=== PATIENT | male | born 1980 | race Caucasian/White ===

== ENCOUNTER → 2017-11-22 | Outpatient (CLI) | payer BC ==
--- NOTE | 2017-11-22 17:30 | US ---
EXAMINATION TYPE: US scrotum with doppler. Grayscale and color Doppler Duplex imaging performed of rolo ochoa scrotum. 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 Pt states left testicle pain EXAM MEASUREMENTS: TESTICLES: Right Testicle: 4.7 x 2.2 x 3.2 cm Left Testicle: 4.5 x 2.1 x 3.2 cm EPIDIDYMIS HEAD: Right Epididymis: 1.8 cm Left Epididymis: 1.4 cm Doppler performed to assess for testicular vascularity; good bilateral color flow and waveforms are s een. There is no evidence of testicular torsion. Presence of hydroceles: No Presence of varicoceles: Yes, lateral to left testicle Right epididymal head cyst= 1.0 x 0.7 x 1.1 cm IMPRESSION: No testicular torsion or mass. Small left-sided hydrocele. Simple right epididymal cyst.
== END ==
LOC: RADUSWWP 16:54
PROVIDERS: ATTEND Family Medicine
DX: N43.3 Hydrocele, unspecified (principal); N50.3 Cyst of epididymis
CPT/HCPCS: 76870; 93975

== ENCOUNTER → 2023-04-25 | Outpatient (CLI) | payer BC | END | disposition home or self-care (01) | LOC: LABWHC1 11:31 | PROVIDERS: ATTEND Surgery Plastic and Reconstructive Surgery | DX: I11.9 Hypertensive heart disease without heart failure (principal) | CPT/HCPCS: 36415; 93005 ==